=== PATIENT | female | born 1950 | race Caucasian/White ===

== ENCOUNTER 2025-05-12 16:06 | Emergency (ER) | payer SELFPAY ==
[2025-05-12 16:09] VITALS: BP 198/127
[2025-05-12 16:13] VITALS: BP 192/127
[2025-05-12 16:32] LABS: Hematocrit 46.0 % (37.0-47.0); Hemoglobin 15.6 g/dL (12.0-16.0); Mean Corp Hgb Conc. 33.9 g/dL (33.0-37.0); Mean Corpuscular Volume 83.5 fL (81.0-99.0); Nucleated Red Blood Cells % 0 %; Platelet Count 296 10^3/uL (130-400); Red Cell Dist. Width 12.4 % (11.5-14.5)
[2025-05-12 16:45] LABS: ALT (SGPT) 19 U/L (0-35); AST (SGOT) 24 U/L (14-36); Albumin 4.5 g/dl (3.5-5.0); Alkaline Phosphatase 109 U/L (38-126); Blood Urea Nitrogen 16 mg/dl (7-17); Calcium 9.6 mg/dl (8.4-10.2); Carbon Dioxide 27 mmol/L (22-30); Chloride 102 mmol/L (98-107); Glucose 100 mg/dl (70-99); Potassium 4.2 mmol/L (3.5-5.1); Sodium 135 mmol/L (135-145); Total Protein 7.4 g/dl (6.3-8.2); eGFR > 60.00
[2025-05-12 18:42] VITALS: BP 220/123
== END 2025-05-12 19:51 ==
LOC: EMR 16:06
PROVIDERS: Emergency Medicine
DX: Z53.21 Procedure and treatment not carried out due to patient leaving prior to being seen by health care provider (principal)
CPT/HCPCS: 80053; 85025; 93005

== ENCOUNTER 2025-05-13 13:34 | Emergency (ER) | payer OTHER, SELFPAY ==
[2025-05-13 13:40] VITALS: BP 197/115
--- NOTE | 2025-05-13 16:26 | ED.GENMED ---
History of Present Illness
General
Chief Complaint: Blood Pressure Problem
Time Seen by Provider: 05/13/25 15:58
History of Present Illness
History of Present Illness:
Lynn is a 75-year-old female with no past medical history who presents after routine physical by her insurance company found elevated blood pressure. Came in to the Emergency Department yesterday however left prior to being seen. Returning
today for more management of her blood pressure. She has no complaints. Denies any headache, chest pain, shortness of breath, nausea, vomiting, blurry vision or visual changes. Does not have a family doctor
Phy Exam
General Physical Exam
General Presentation: well appearing and no apparent distress
General Skin: warm and dry
General Habitus: normal
General Mental: alert
General Hydration: appears well hydrated
ENT Exam
ENT Exam: EOMI, pharynx normal, neck supple and normocephalic
Eye Exam
Eye Exam: PERRL, cornea clear and conjunctiva normal
Cardiovascular Exam
Cardiovascular Exam: regular rate/rhythm, no edema, no murmur and normal peripheral pulses
Pulmonary Exam
Pulmonary Exam: lungs clear, no respiratory distress, no rales, no crackles, no rhonchi, no stridor, no wheezing and no cough
Gastrointestinal Exam
Gastrointestinal Exam: normal bowel sounds, non tender, soft, no organomegaly, no pulsatile mass and non distended
Neurological Exam
Neurological Exam: alert, oriented x3, no motor deficits and speech normal
Musculoskeletal Exam
Musculoskeletal Exam: full ROM and no edema
Skin Exam
Skin Exam: normal color, warm/dry, no rash and no petechia
Psychiatric Exam
Psychiatric Exam: normal mood/affect
Course
Vital Signs
Initial and Last Documented VS:
Initial Vital Signs
Temp Pulse Resp BP Pulse Ox
36.6 C 95 20 197/115 97
05/13/25 13:40 05/13/25 13:40 05/13/25 13:40 05/13/25 13:40 05/13/25 13:40
Last Documented Vital Signs
Temp Pulse Resp BP Pulse Ox
36.6 C 95 20 197/115 97
05/13/25 13:40 05/13/25 13:40 05/13/25 13:40 05/13/25 13:40 05/13/25 13:40
MDM/Problems Addressed
Differential Diagnosis Includes:
Hypertension
MDM/Problems Addressed:
Patient with blood pressure of 197/115 in triage. EKG and labs obtained yesterday reviewed. EKG normal sinus rhythm. CBC and BMP within normal limits. Discussed hypertension management with patient. Given that she has had multiple elevated
blood pressures she would benefit from medication management of her hypertension. A prescription of losartan has been sent to her pharmacy. Instructed her to take her blood pressure at home as she starts this medication. She should follow-up with
her primary care doctor for refills and continued management of her high blood pressure. All questions were answered.
*Pulse Oximetry
SaO2: 97
Oxygen Mode of Delivery: Room air
Patient hypoxic: no
*Critical Care Note
Total Time (30-74mins, 75-104mins- exclusive of procedures): Not Applicable
ED Attending Note
-
Portions of this chart may have been created with voice recognition software.� Occasional wrong word or��sound alike� substitutions may have occurred due to the inherent limitations of voice recognition software.
Discharge Plan
Departure
Patient Disposition: Home (Routine Discharge)
Date of Disposition: 05/13/25
Time of Disposition: 16:20
Patient with high blood pressure during this ER visit?: Yes
Discharge Problem:
Hypertension
Instructions: High Blood Pressure (DC)
Prescriptions:
New
losartan 50 mg tablet
50 mg PO DAILY 30 Days Qty: 30 0RF
Referrals:
UNKNOWN - PT DOES,NOT KNOW [Family Provider]
Activity Restrictions/Additional Instructions:
You are seen in the emergency department for high blood pressure. Lab work and EKG was completed yesterday and is within normal limits. A prescription for losartan has been sent to your pharmacy. You should follow-up with a primary care physician
within the next 2 weeks regarding your high blood pressure. Monitor your blood pressure at home.
Discharge Date and Time
Print Language: BANGLADESHI
[2025-05-13 16:48] VITALS: BP 148/109
== END 2025-05-13 16:51 | disposition home or self-care (01) ==
LOC: EMR 13:34
PROVIDERS: EMERGENCY PHYSICIAN Emergency Medicine
DX: I10 Essential (primary) hypertension (principal)
CPT/HCPCS: 99282